=== PATIENT | female | born 1995 | race Caucasian/White ===

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

== ENCOUNTER 2018-08-30 17:25 | Emergency (ER) | payer MEDICAID, OTHER ==
[~2018-08-30] VITALS: Ht 167.6 cm; Wt 66.0 kg
[2018-08-30 17:34] VITALS: BP 98/59
--- NOTE | 2018-08-30 18:10 | NUR ---
Discharge instructions discussed with patient including when to return to emergency department, patient verbalizes understanding. Prescriptions provided to patient with instruction for use. Patient ambulates with steady gait to discharge desk in no acute distress.
== END 2018-08-30 18:12 | disposition home or self-care (01) ==
LOC: ED 18:00
DX: L05.91 Pilonidal cyst without abscess (principal)
CPT/HCPCS: 99283

== ENCOUNTER 2020-07-12 10:20 | Emergency (ER) | payer MEDICAID ==
[~2020-07-12] VITALS: Ht 167.6 cm; Wt 68.9 kg
--- NOTE | 2020-07-12 10:42 | NUR ---
BINDER CUTTER: PT TO ROOM FROM RADIOLOGY VIA WHEELCHAIR.
--- NOTE | 2020-07-12 10:52 | NUR ---
PROVIDER AT BEDSIDE FOR ASSESSMENT AND TO DISCUSS PLAN OF CARE
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
[2020-07-12] MEDS ORDERED: KETOROLAC 30 MG/1 ML ONE (10:59)
[2020-07-12] MEDS ORDERED: KETOROLAC 30 MG/1 ML IM ONE (11:00)
[2020-07-12 11:07] VITALS: BP 112/62
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
== END 2020-07-12 11:30 | disposition home or self-care (01) ==
LOC: ED 11:22
DX: S83.412A Sprain of medial collateral ligament of left knee, initial encounter (principal); X50.1XXA Overexertion from prolonged static or awkward postures, initial encounter; Y93.89 Activity, other specified; Y92.830 Public park as the place of occurrence of the external cause; Y99.8 Other external cause status
CPT/HCPCS: 29505; 73564; 96372; 99283; J1885

== ENCOUNTER 2021-01-08 09:13 | Emergency (ER) | payer MEDICAID ==
[~2021-01-08] VITALS: Ht 165.1 cm; Wt 68.0 kg
[2021-01-08 09:15] VITALS: BP 125/71
== END 2021-01-08 10:28 | disposition home or self-care (01) ==
LOC: ED 10:27
DX: L01.01 Non-bullous impetigo (principal)
CPT/HCPCS: 99283